=== PATIENT | female | born 1990 | race Two or more races ===

== ENCOUNTER 2023-11-15 06:48 | Emergency (ER) | payer OTHER, SELFPAY ==
[2023-11-15 06:54] VITALS: BP 135/96; PULSE 65; TEMP 36.6; O2SAT 98; BMI 32.3
--- NOTE | 2023-11-15 07:00 | PC.NURSE ---
pt reports back spasms to upper right side back. pt also reports leg cramps this week and h/o Addisons disease. No injury reported.
[2023-11-15 07:02] VITALS: O2SAT 98
--- NOTE | 2023-11-15 07:22 | ECG_ITS ---
[facility] Test Date: 2023-11-15 Pat Name: JEANIE CHOPRA Department: Room: - Gender: Female [employer]: : 1990 Requested By: Order Number: [id number] Reading MD: GEORGE LEON Measurements Intervals [place] Rate: 67 P: 54 DC: 156 QRS: 35 QRSD: 86 T: 71 QT: 394 QTc: 409 Interpretive Statements 1100 Sinus rhythm 1970 with occasional ectopic premature complexes 9140 abnormal rhythm ECG No previous ECG available for comparison Electronically Signed On 11-15-2023 20:07:20 EDT by GEORGE LEON
--- NOTE | 2023-11-15 07:33 | ED.GENADUL1 ---
HPI HPI - General Adult General Chief complaint: Back Pain/Injury Stated complaint: BACK PAIN Time Seen by Provider: 11/15/23 07:15 Source: patient Mode of arrival: walk-in History of Present Illness HPI narrative: The patient have a history of [place] disease coming to the ER with almost few days history of cramping mostly in the upper extremity and the back of her chest, patient mentioned that she have history of having low sodium that sometimes she need to take some increase her salt intake, she has not followed up with her primary care for the last 2 years The patient is complaining of posterior upper chest pain that comes whenever she take a deep breath and sometimes associated moving the right arm, the patient denies any fever chills cough or difficulty breathing She also denies any history of immobilization and mentioned that she also have sometimes cramping in her lower extremity but that is very common in addition sometimes cramping in her abdomen but the fact that she is Having cramping in her upper chest that is the new symptom that brought her today Related Data Home Medications ?Medication ?Instructions ?Recorded ?Confirmed desogestrel 0.15 mg-ethinyl 1 tab PO DAILY 11/15/23 11/15/23 estradiol 0.03 mg tablet (Apri) fludrocortisone 0.1 mg tablet 0.1 mg PO DAILY 11/15/23 11/15/23 hydrocortisone 10 mg tablet 20 mg PO DAILY 11/15/23 11/15/23 Previous Rx's ?Medication ?Instructions ?Recorded calcium carbonate 600 mg PO BID #20 tabs 11/15/23 Allergies Allergy/AdvReac Type Severity Reaction Status Date / Time No Known Drug Allergies Allergy Verified 11/15/23 06:58 Opioid HPI Opioid Management Most Recent Opioid Data: No Data to Display Review of Systems ROS Status of ROS 10 or more systems reviewed and unremarkable except as noted in history and below [facility] Medical History (Updated 11/15/23 @ 08:26 by Mirtha Galvan MD) Eduardo disease ?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 General: Well-appearing and in no apparent distress. Skin: Warm, dry, no pallor noted. No rash. Head: Normocephalic, atraumatic. Neck: Supple, non-tender. Eye: Pupils are equal, round and EOMI. No scleral icterus. Ears, Nose, Mouth, and Throat: TM are clear, no nasal mucosal hypertrophy. Oral mucosa is moist, no posterior oropharynx erythema, uvula is mid-line Cardiovascular: Regular Rate and Rhythm without murmur, gallop or rub. Respiratory: No accessory muscle use or respiratory distress. Lungs are clear to auscultation, no wheezing, rales or rhonchi Chest Wall: There is tenderness upon palpation of the posterior upper chest mostly toward the scapular and lower neck area mostly at the paraspinal area Back: No midline thoracic or lumbar vertebral tenderness. No CVA tenderness Musculoskeletal: normal ROM, no calf or popliteal tenderness, no lower extremity edema/swelling GI: Abdomen is soft, non-distended. Normal bowel sounds. No masses appreciated. No tenderness to palpation. No rebound, guarding, or rigidity noted. Neurological: A&O x4. No cranial nerve dysfunction observed. No truncal ataxia. Moves all extremities. Sensation intact. Psychiatric: Cooperative and interactive. Normal mood and affect. Constitutional Vital Signs, click to edit/add: Last Vital Signs Temp 97.9 F 11/15/23 06:54 Pulse 73 11/15/23 08:44 Resp 16 11/15/23 08:44 BP 123/89 11/15/23 08:44 Pulse Ox 98 11/15/23 08:44 O2 Del Method Room Air 11/15/23 07:02 Course Vital Signs Vital signs: Vital Signs Temperature 97.9 F 11/15/23 06:54 Pulse Rate 65 11/15/23 06:54 Respiratory Rate 16 11/15/23 06:54 Blood Pressure 135/96 H 11/15/23 06:54 Pulse Oximetry 98 11/15/23 06:54 Oxygen Delivery Method Room Air 11/15/23 06:54 Temperature 97.9 F 11/15/23 06:54 Pulse Rate 73 11/15/23 08:44 Respiratory Rate 16 11/15/23 08:44 Blood Pressure 123/89 11/15/23 08:44 Pulse Oximetry 98 11/15/23 08:44 Oxygen Delivery Method Room Air 11/15/23 07:02 Medical Decision Making MDM Narrative Medical decision making narrative: The patient EKG showing sinus rhythm with a heart rate of [address] elevation or depression but there is some sinus arrhythmia with one PAC but there is no prolonged QT The patient CBC and chemistry shows hypocalcemia with 8.3 calcium corrected with albumin which will be 8.4 The patient have mild symptoms of hypocalcemia right now with the EKG showing no QT prolongation mention to the patient does not have any acute spasm or any severe hypocalcemia symptoms Right now the patient was feeling better after she was treated with Toradol she was instructed about being started on calcium supplement mostly calcium carbonate 600 mg twice daily and she is to follow-up with her primary care doctor for another blood workup within 48 hours for calcium level The patient was instructed about the importance of coming back in case she could not get her blood workup on time to have it in the ER The patient is to follow up with primary care physician in next 2-3 days or to return to the emergency department should any of the signs or symptoms worsen or new symptoms develop. The patient agrees with the following Diagnosis and Treatment plan and the patient will be discharged home. Lab Data Labs: Lab Results 11/15/23 Range/Units 07:28 WBC 11.0 (4.0-11.0) 10^3/uL RBC 4.57 (4.20-5.40) 10^6/uL Hgb 15.2 (12.0-16.0) g/dL Hct 43.1 (36.0-48.0) % MCV 94.3 (81.0-99.0) fL MCH 33.3 (26.7-34.0) pg MCHC 35.3 H (29.9-35.2) g/dL RDW 12.0 (11.0-15.0) % Plt Count 206 (150-450) 10^3/uL MPV 10.5 (9.5-13.5) fL Neut % (Auto) 66.8 (43.0-75.0) % Lymph % (Auto) 24.5 (20.5-60.0) % [place] % (Auto) 7.4 (1.7-12.0) % Eos % (Auto) 0.5 L (0.9-7.0) % Baso % (Auto) 0.3 (0.2-2.0) % Neut # (Auto) 7.3 H (1.4-6.5) 10^3/uL Lymph # (Auto) 2.7 (1.2-3.8) 10^3/uL [place] # (Auto) 0.8 (0.3-0.8) 10^3/uL Eos # (Auto) 0.1 (0.0-0.7) 10^3/uL Baso # (Auto) 0.0 (0.0-0.1) 10^3/uL Abs Immat Gran (auto) 0.06 H (0.00-0.03) 10^3/uL Imm/Tot Granulo (auto) 0.5 (0.0-0.5) % PT 10.4 (9.0-11.6) sec INR 0.98 D-Dimer 0.23 (<=0.59) mg/L FEU Sodium 139 (136-145) mmol/L Potassium 3.5 (3.5-5.1) mmol/L Chloride 105 (98-107) mmol/L Carbon Dioxide 22.2 (21.0-32.0) mmol/L Anion Gap 15.3 BUN 12.0 (7.0-18.0) mg/dL Creatinine 0.83 (0.55-1.02) mg/dL Est GFR ( Amer) >60 (>=60) Est GFR (Non-Af Amer) >60 (>=60) BUN/Creatinine Ratio 14.5 Glucose 95 (74-106) mg/dL Calcium 8.3 L (8.5-10.1) mg/dL Magnesium 2.4 (1.8-2.4) mg/dL Total Bilirubin 0.5 (0.2-1.0) mg/dL AST 14 L (15-37) U/L ALT 24 (14-59) U/L Alkaline Phosphatase 59 (46-116) U/L Troponin I High Sens 11.1 (4.0-51.3) pg/mL Total Protein 6.5 (6.4-8.2) g/dL Albumin 3.3 L (3.4-5.0) g/dL Globulin 3.2 g/dL Albumin/Globulin Ratio 1.0 Serum HCG, Qual Negative (NEGATIVE) Discharge Plan Discharge Stand Alone Forms: Work/School Release, Portal Instructions Chief Complaint: Back Pain/Injury Clinical Impression: Hypocalcemia, Muscle pain Patient Disposition: Home, Self-Care Time of Disposition Decision: 08:26 Prescriptions / Home Meds: New calcium carbonate 600 mg calcium (1,500 mg) tablet 600 mg PO BID Qty: 20 0RF No Action desogestrel-ethinyl estradiol [Apri] 0.15-0.03 mg tablet 1 tab PO DAILY fludrocortisone 0.1 mg tablet 0.1 mg PO DAILY hydrocortisone 10 mg tablet 20 mg PO DAILY Rx Instructions: 20mg morning, 10mg in afternoon Print Language: Romansh Instructions: Hypocalcemia (ED) Additional Instructions: repreated calcium level in 48 hrs Referrals: Physician,Non-Staff, MD [Primary Care Provider] - 1 week Discharge Date/Time: 11/15/23 08:46
[2023-11-15] MEDS: KETOROLAC TROMETHAMINE 30 MG/ML VIAL 15 MG IVP (07:38)
[2023-11-15 07:40] LABS: Basophils Percent Auto 0.3 % (0.2-2.0); Eosinophils Absolute Auto 0.1 10^3/uL (0.0-0.7); Eosinophils Percent Auto 0.5 % (0.9-7.0); Hematocrit 43.1 % (36.0-48.0); Hemoglobin 15.2 g/dL (12.0-16.0); Immature Granulocytes Abs Auto 0.06 10^3/uL (0.00-0.03); Immature Granulocytes Pct Auto 0.5 % (0.0-0.5); Lymphocytes Absolute Auto 2.7 10^3/uL (1.2-3.8); Lymphocytes Percent Auto 24.5 % (20.5-60.0); Mean Corpuscular HGB Conc 35.3 g/dL (29.9-35.2); Mean Corpuscular Hemoglobin 33.3 pg (26.7-34.0); Mean Corpuscular Volume 94.3 fL (81.0-99.0); Mean Platelet Volume 10.5 fL (9.5-13.5); Monocytes Absolute Auto 0.8 10^3/uL (0.3-0.8); Monocytes Percent Auto 7.4 % (1.7-12.0); Neutrophils Absolute Auto 7.3 10^3/uL (1.4-6.5); Neutrophils Percent Auto 66.8 % (43.0-75.0); Platelet Count 206 10^3/uL (150-450); Red Blood Count 4.57 10^6/uL (4.20-5.40)
--- NOTE | 2023-11-15 07:42 | XR_ITS ---
The [address] [address] Patient Name: JEANIE CHOPRA MRN: [id number] date: 1990 Sex: F Assigned Patient Location: ER Current Patient Location: ER Accession/Order Number: [id number] Exam Date: 11/15/2023 07:38 Report Date: 11/15/2023 07:53 At the request of: YOSHI VARGAS Procedure: XR chest 1V EXAM: Chest x-ray HISTORY: . cp . COMPARISON: None. TECHNIQUE: Single view of the chest FINDINGS: Heart and vascularity are unremarkable. Lungs are free of focal infiltrates. Grossly no acute bony abnormality is appreciated. XR/XR chest 1V IMPRESSION: No acute heart or lung disease identified. Electronically authenticated by: SHAQUILLE BARTHOLOMEW Date: 11/15/2023 07:53
[2023-11-15 07:49] LABS: D Dimer 0.23 mg/L FEU (<=0.59)
[2023-11-15 07:51] LABS: HCG Qualitative NEGATIVE (NEGATIVE); Internal Control Within Normal Limits
[2023-11-15 07:54] LABS: Alanine Aminotransferase 24 U/L (14-59); Albumin Level 3.3 g/dL (3.4-5.0); Alkaline Phosphatase 59 U/L (46-116); Aspartate Amino Transferase 14 U/L (15-37); BUN Creatinine Ratio 14.5; Bilirubin Total 0.5 mg/dL (0.2-1.0); Calcium 8.3 mg/dL (8.5-10.1); Chloride 105 mmol/L (98-107); Estimated GFR (African America >60 (>=60); Estimated GFR (Non-African Ame >60 (>=60); Globulin 3.2 g/dL; Glucose 95 mg/dL (74-106); Potassium 3.5 mmol/L (3.5-5.1); Sodium 139 mmol/L (136-145); Total Protein 6.5 g/dL (6.4-8.2)
[2023-11-15 07:57] LABS: Magnesium 2.4 mg/dL (1.8-2.4); Troponin I High Sensitivity 11.1 pg/mL (4.0-51.3)
[2023-11-15 07:59] LABS: Anion Gap 15.3; Carbon Dioxide 22.2 mmol/L (21.0-32.0)
[2023-11-15 08:09] LABS: INR 0.98; Prothrombin Time 10.4 sec (9.0-11.6)
[2023-11-15 08:44] VITALS: BP 123/89; PULSE 73; O2SAT 98
== END 2023-11-15 08:46 | disposition home or self-care (01) ==
PROVIDERS: Emergency Provider Emergency Medicine
DX: E83.51 Hypocalcemia (principal); M79.10 Myalgia, unspecified site; E27.1 Primary adrenocortical insufficiency
CPT/HCPCS: 36415; 71045; 80053; 83735; 84484; 84703; 85025; 85378; 85610; 93005; 96374; 99285; J1885

== ENCOUNTER 2024-01-13 07:11 | Outpatient (OUT) | payer OTHER, SELFPAY ==
--- OUTSIDE RECORDS SUMMARY | 2024-01-13 07:19 | XMS_ITS | CCD ---
Author Organization [facility] Care Team Providers Care Privacy Manager Name Role Phone MARIE AGUILAR Referring Unavailable Unavailable Primary Care Provider Unavailjanice PLATT, NONE LISTED Primary Care UnavailREJI Jacobs Admitting Unavailable REJI VICENTE Attending Unavailable GARRETT REID Consulting Unavailable Héctor Chavez Consulting Unavailable JAXSON, MUHAMID M Referring Unavailable JAXSON, MUHAMID M Primary Care Unavailable KARRIE HOGAN Referring Unavailable JAXSON, MUHAMID M Primary Care Unavailable KARRIE HOGAN Attending Unavailable JAXSON, MUHAMID M Referring Unavailable JAXSON, MUHAMID M Primary Care Unavailable JOJO LONG Attending Unavailable JAXSON, MUHAMID M Referring Unavailable JAXSON, MUHAMID M Primary Care Unavailable Medications Current Medications Medication Drug Class(es) Dates Sig (Normalized) Sig (Original) hydrocortisone 10 mg oral tablet (1 source) Corticosteroid Start: 09-20-2019 take 2 tablets by mouth once daily in the morning hydrocortisone (CORTEF) 10 MG tablet TAKE 2 TABLETS BY MOUTH EVERY DAY IN THE MORNING 0 09/20/2019 Active Problems Problem Classification Problem Date Documented Date Episodic/Chronic E Codes: Fall (1 source) Fall from bed, initial encounter; Translations: [FALL FROM BED INITIAL ENCOUNTER] Onset: 09-23-2020 Episodic Headache; including migraine (1 source) Headache; including migraine; Translations: [HEADACHE UNSPECIFIED] Onset: 09-23-2020 Menopausal disorders (1 source) Other primary ovarian failure; 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 Other aftercare (1 source) Other alf (current) drug therapy; Translations: [OTH MANAGER WIRELESS CURRENT DRUG THERAPY] Onset: 09-23-2020 Episodic Other endocrine disorders (2 sources) Primary adrenocortical insufficiency; Translations: [Primary adrenocortical insufficiency] Onset: 07-07-2023 Chronic Other eye disorders (1 source) Dry eye syndrome of bilateral lacrimal glands; Translations: [Dry eye syndrome of bilateral lacrimal glands] Onset: 07-08-2023 Episodic Other injuries and conditions due to external causes (4 sources) Other specified injuries of head, initial encounter; Translations: [OTH SPEC INJURIES HEAD INITIAL ENC] Onset: 09-19-2020 Episodic Unclassified (1 source) Annual Exam Onset: 09-02-2023 Results Test Name Value Interpretation Reference Range Facility BASIC METABOLIC PANLon 07-06 Anion gap [Moles/Vol] 9 mmol/L Normal 5-15 [facility] Comment on above: Performed By: #### Meliton ARIAS, 3016-3, 302-7 #### [facility] ([id number]) [address], [address] [place] [address] Calcium [Mass/Vol] 8.8 mg/dL Normal 8.5-10.5 [facility] Comment on above: Performed By: #### Meliton ARIAS, 3016-3, 302-7 #### [facility] ([id number]) [address], [address] [place] [address] Chloride [Moles/Vol] 105 mmol/L Normal 98-[address] [facility] Comment on above: Performed By: #### Meliton ARIAS, 3016-3, 302-7 #### [facility] ([id number]) [address], [address] [place] [address] CO2 [Moles/Vol] 26 mmol/L Normal 22-32 [facility] Comment on above: Performed By: #### Meliton ARIAS, 3016-3, 302-7 #### [facility] ([id number]) [address], [address] [place] [address] Creatinine [Mass/Vol] 0.91 mg/dL Normal 0.40-1.00 [facility] Comment on above: Result Comment: METH OD TRACEABLE TO IDMS STANDARD Performed By: #### Meliton ARIAS, 3016-3, 302-7 #### [facility] ([id number]) [address] [address] [place] [address] GFR/1.73 sq M.predicted among non-blacks MDRD (S/P/Bld) [Vol rate/Area] 87 mL/min/{1.73_m2} Normal >59 [facility] Comment on above: Result Comment: Reported eGFR is based on the CKD-EPI 2020 equation that does not use a race coefficient. Performed By: #### Meliton ARIAS, 3016-3, 3023-7 #### [facility] ([id number]) [address] [address] [place] [address] Glucose [Mass/Vol] 74 mg/dL Normal 65-99 [facility] Comment on above: Performed By: #### Meliton ARIAS, 6-3, 3023-7 #### [facility] ([id number]) [address] [address] [place] [address] Potassium [Moles/Vol] 3.6 mmol/L Normal 3.5-5.0 [facility] Comment on above: Performed By: #### Meliton ARIAS, 6-3, 3023-7 #### [facility] ([id number]) [address] [address] [place] [address] Sodium [Moles/Vol] 140 mmol/L Normal 134-146 [facility] Comment on above: Performed By: #### Meliton ARIAS, 6-3, 3023-7 #### [facility] ([id number]) [address] [address] [place] [address] Urea nitrogen [Mass/Vol] 10 mg/dL Normal 5-23 [facility] Comment on above: Performed By: #### Meliton ARIAS, 6-3, 3023-7 #### [facility] ([id number]) [address] [address] [place] [address] FREE T4on 07-07-2023 Free T4 [Mass/Vol] 0.81 ng/dL Normal 0.61-1.60 [facility] Comment on above: Performed By: #### Meliton ARIAS, 3016-3, 3024-7 #### [facility] ([id number]) [address] [address] [place] [address] HGB A1C (GLYCO-HGB)on 2023 Glucose [Mass/Vol] 100 mg/dL Normal [facility] Comment on above: Performed By: #### Meliton ARIAS, 3016-3, 3023-7 #### [facility] ([id number]) [address] [address] [place] [address] HbA1c (Bld) [Mass fraction] 5.1 % Normal 4.4-5.6 [facility] Comment on above: Result Comment: NOTE ADA Guidelines Result HgbA1c Normal : less than 5.7 % Prediabetes : 5.7 % to 6.4 % Diabetes : > 6.4 % Use with caution in patients with abnormal hemoglobin variants as the half-life of red blood cells and in vivo glycation rates are affected. Performed By: #### Meliton ARIAS, 3016-3, 302-7 #### [facility] ([id number]) [address] [address] [place] [address] TSH Qnon 07-07-2023 TSH 3.54 uIU/mL Normal 0.49-4.67 [facility] Comment on above: Performed By: #### Meliton ARIAS, 3016-3, 3024-7 #### [facility] ([id number]) [address] [address] [place] [address] BASIC METABOLIC PANLon 04-15 Anion gap [Moles/Vol] 10 mmol/L Normal 5-15 [facility] Comment on above: Performed By: #### Meliton ARIAS #### [facility] ([id number]) [address] [address] [place] [address] Calcium [Mass/Vol] 8.8 mg/dL Normal 8.5-10.5 [facility] Comment on above: Performed By: #### B MP #### [facility] ([id number]) [address] [place] [address] Chloride [Moles/Vol] 103 mmol/L Normal 98-[address] [facility] Comment on above: Performed By: #### B MP #### [facility] ([id number]) [address] [address] [place] [address] CO2 [Moles/Vol] 26 mmol/L Normal 22-32 [facility] Comment on above: Performed By: #### B MP #### [facility] ([id number]) [address] [address] [place] [address] Creatinine [Mass/Vol] 0.84 mg/dL Normal 0.40-1.00 [facility] Comment on above: Result Comment: METH OD TRACEABLE TO IDMS STANDARD Performed By: #### B MP #### [facility] ([id number]) [address] [address] [place] [address] eGFR (CKD-EPI) NON-RACE DEPENDENT >90 Normal >59 [facility] Comment on above: Result Comment: Reported eGFR is based on the CKD-EPI 2020 equation that does not use a race coefficient. Performed By: #### B MP #### [facility] ([id number]) [address] [address] [place] [address] Glucose [Mass/Vol] 90 mg/dL Normal 65-99 [facility] Comment on above: Performed By: #### B MP #### [facility] ([id number]) [address] [address] [place] [address] Potassium [Moles/Vol] 3.2 mmol/L Low 3.5-5.0 [facility] Comment on above: Performed By: #### B MP #### [facility] ([id number]) [address] [place] [address] Sodium [Moles/Vol] 139 mmol/L Normal 134-146 [facility] Comment on above: Performed By: #### B MP #### [facility] ([id number]) [address] [place] [address] Urea nitrogen [Mass/Vol] 6 mg/dL Normal 5-23 [facility] Comment on above: Performed By: #### B MP #### [facility] ([id number]) [address] [place] [address] Comprehensive Metabolic Pane muna 04-21-2021 Albumin [Mass/Vol] 3.1 g/dL Low 3.2-5.5 [facility] Comment on above: Performed By: #### C MP #### [facility] [address] Albumin/Globulin [Mass ratio] 1.1 {ratio} Normal [facility] Comment on above: Performed By: #### C MP #### [address] ALP [Catalytic activity/Vol] 145 U/L High 32-92 [facility] Comment on above: Result Comment: PERF ORMED BY: [place] [address] PATHOLOGIST CHANGE CONSULTANT STEWART RAMOS M.D. Performed By: #### C MP #### [facility] [address] [place] [id number] [place] ALT [Catalytic activity/Vol] 14 U/L Normal 10-60 [facility] Comment on above: Performed By: #### C MP #### [facility] [address] [place] [id number] [place] AST [Catalytic activity/Vol] 20 U/L Normal 10-42 [facility] Comment on above: Performed By: #### C MP #### [facility] [address] [place] [address] Bilirubin [Mass/Vol] 0.4 mg/dL Normal 0.3-1.2 [facility] Comment on above: Performed By: #### C MP #### [address] Calcium [Mass/Vol] 9.4 mg/dL Normal 8.2-10.2 [facility] Comment on above: Performed By: #### C MP #### [address] Chloride [Moles/Vol] 104 mmol/L Normal 95-114 [facility] Comment on above: Performed By: #### C MP #### [address] CO2 [Moles/Vol] 18.5 mmol/L Low 22.0-30.0 [facility] Comment on above: Performed By: #### C MP #### [address] Creatinine [Mass/Vol] 0.56 mg/dL Normal 0.44-1.03 [facility] Comment on above: Performed By: #### C MP #### [address] Estimated GFR ( Sola > 60 Normal [facility] Comment on above: Result Comment: GFR estimated reference range: According to KDOQI guidelines, <60 ml/min/1.73m2 is sufficient to diagnose a patient with chronic kidney disease. Performed By: #### C MP #### [address] Estimated GFR (Non- Am > 60 Normal [facility] Comment on above: Performed By: #### C MP #### [address] Globulin (S) [Mass/Vol] 2.8 g/dL Normal [facility] Comment on above: Performed By: #### C MP #### [address] Glucose [Mass/Vol] 100 mg/dL Normal 70-100 [facility] Comment on above: Result Comment: [place] Glucose Reference Range is dependent on time and content of last meal. Glucose of more than 200 mg/dL in a nonstressed, ambulatory subject supports the diagnosis of Diabetes Mellitus. ADA recommended reference range Performed By: #### C MP #### [facility] [address] Potassium [Moles/Vol] 3.6 mmol/L Normal 3.5-5.1 [facility] Comment on above: Performed By: #### C MP #### [facility] [address] Protein [Mass/Vol] 5.9 g/dL Low 6.1-7.9 [facility] Comment on above: Performed By: #### C MP #### [facility] [address] [place] [address] Sodium [Moles/Vol] 134 mmol/L Low 136-146 [facility] Comment on above: Performed By: #### C MP #### [facility] [address] [place] [address] [place] Urea nitrogen [Mass/Vol] 5 mg/dL Low 9-23 [facility] Comment on above: Performed By: #### C MP #### [facility] [address] Comprehensive Metabolic Pane muna 02-18-2021 Albumin [Mass/Vol] 3.7 g/dL Normal 3.2-5.5 [facility] Comment on above: Performed By: #### B MP, CBC, HCGQNT #### [facility] [address] [place] [phone] [place] Albumin/Globulin [Mass ratio] 1.3 {ratio} Normal [facility] Comment on above: Performed By: #### B MP, CBC, HCGQNT #### [facility] [address] [place] [phone] [place] ALP [Catalytic activity/Vol] 61 U/L Normal 32-92 [facility] Comment on above: Result Comment: PERF ORMED BY: [place] [address] PATHOLOGIST CHANGE CONSULTANT STEWART RAMOS M.D. Performed By: #### B MP, CBC, HCGQNT #### [address] ALT [Catalytic activity/Vol] 56 U/L Normal 10-60 [facility] Comment on above: Performed By: #### B MP, CBC, HCGQNT #### [address] AST [Catalytic activity/Vol] 41 U/L Normal 10-42 [facility] Comment on above: Performed By: #### B MP, CBC, HCGQNT #### [address] Bilirubin [Mass/Vol] 0.7 mg/dL Normal 0.3-1.2 [facility] Comment on above: Performed By: #### B MP, CBC, HCGQNT #### [address] Calcium [Mass/Vol] 9.8 mg/dL Normal 8.2-10.2 [facility] Comment on above: Performed By: #### B MP, CBC, HCGQNT #### [address] Chloride [Moles/Vol] 100 mmol/L Normal 95-114 [facility] Comment on above: Performed By: #### B MP, CBC, HCGQNT #### [facility] [address] [place] [address] CO2 [Moles/Vol] 19.1 mmol/L Low 22.0-30.0 [facility] Comment on above: Performed By: #### B MP, CBC, HCGQNT #### [address] Creatinine [Mass/Vol] 0.50 mg/dL Normal 0.44-1.03 [facility] Comment on above: Performed By: #### B MP, CBC, HCGQNT #### [address] [place] [address] [place] Estimated GFR ( Sola > 60 Normal [facility] Comment on above: Result Comment: GFR estimated reference range: According to KDOQI guidelines, <60 ml/min/1.73m2 is sufficient to diagnose a patient with chronic kidney disease. Performed By: #### B MP, CBC, HCGQNT #### [address] Estimated GFR (Non- Am > 60 Normal [facility] Comment on above: Performed By: #### B MP, CBC, HCGQNT #### [address] Globulin (S) [Mass/Vol] 2.9 g/dL Normal [facility] Comment on above: Performed By: #### B MP, CBC, HCGQNT #### [address] Glucose [Mass/Vol] 75 mg/dL Normal 70-100 [facility] Comment on above: Result Comment: [place] Glucose Reference Range is dependent on time and content of last meal. Glucose of more than 200 mg/dL in a nonstressed, ambulatory subject supports the diagnosis of Diabetes Mellitus. ADA recommended reference range Performed By: #### B MP, CBC, HCGQNT #### [address] Potassium [Moles/Vol] 4.2 mmol/L Normal 3.5-5.1 [facility] Comment on above: Performed By: #### B MP, CBC, HCGQNT #### [address] Protein [Mass/Vol] 6.6 g/dL Normal 6.1-7.9 [facility] Comment on above: Performed By: #### B MP, CBC, HCGQNT #### [address] Sodium [Moles/Vol] 133 mmol/L Low 136-146 [facility] Comment on above: Performed By: #### B MP, CBC, HCGQNT #### [facility] [address] [place] [phone] [facility] Urea nitrogen [Mass/Vol] 4 mg/dL Low - [facility] Comment on above: Performed By: #### B MP, CBC, HCGQNT #### [facility] [address] [place] [phone] [facility] US OB limitedon 02-10-2021 US OB limited [facility] Main [place] [address] [place] [address] Ultrasound Report Signed Patient: Franny Miller MR#: [id number] : 1990 Acct:[id number] Age/Sex: 30 / F ADM Date: 02/10/21 Loc: Room: Type: [facility] Attending Dr: Jennie Vides DO Ordering Provider: Jennie Vides DO Date of Service: 02/10/21 US/US OB limited: Viability;17 weeks gestation of Copies to: Jennie Vides DO LIMITED OB ULTRASOUND CLINICAL DATA: 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 The placenta is anterior and unremarkable in appearance. The estimated cervical length with the transvaginal probe is 4 cm. The amniotic fluid volume is subjectively normal. There is cardiac and somatic activity with heart rate of 156 bpm. The following measurements were obtained: Biparietal diameter 3.9 cm 17 weeks 6 days +/- 1 weeks 2 days 46% Head circumference 14.0 cm 17 weeks 3 days +/- 1 week 2 days 18% Abdominal circumference 11.7 cm 17 weeks 4 days +/- 1 week 5 days 34% Femur length 2.6 cm 18 weeks 0 days +/- 1 week 6 days 46% The composite ultrasound age based on these measurements is 17 weeks 5 days. The estimated date of delivery is July 16, 2021. US/US OB limited IMPRESSION: SINGLE LIVE INTRAUTERINE GESTATION WITH ULTRASOUND AGE OF 17 WEEKS 5 DAYS Impression dictated by: Karrie Vásquez M.D.02/10/2021 7:54 PM Dictation Location: [place] [address] Tech: Autumn Olvera Transcribed By: GERALDINE 02/10/211953 Dictated By: Karrie Vásquez MD 02/10/211948 Signed By: 02/10/211953 Normal [facility] A1C with Estimated Average Mia meredith 01-22-2021 Glucose [Mass/Vol] 103 mg/dL Normal [facility] Comment on above: Order Comment: PT FA STED 11 1/2 HRS Result Comment: PERF ORMED BY: [place] [address] PATHOLOGIST CHANGE CONSULTANT STEWART RAMOS M.D. Performed By: #### B MP, CBC, HCGQNT #### [facility] [address] [place] [address] HbA1c (Bld) [Mass fraction] 5.2 % Normal 4.3-5.6 [facility] Comment on above: Order Comment: PT FA STED 11 1/2 HRS Result Comment: Incr eased risk for diabetes: 5.7 - 6.4 diabetes: >6.4 glycemic control for adults with diabetes: <7.0 Performed By: #### B MP, CBC, HCGQNT #### [facility] [address] [place] [phone] [place] Adrenocorticotropic Hormone PLon 01-22-[address] 338.0 pg/mL High 7.2-63.3 [facility] Comment on above: Order Comment: PT FA STED 11 1/2 HRS List any foods/meds the pt has taken (see Test/Proc Notes):: FASTED 11 1/2 HRS Patient Posture before Draw (see Test/Proc Notes):: SUPINE Result Comment: ACTH reference interval for samples collected between 7 and 10 AM. Performed at: - [facility] [id number] Engineering Mathematician: Ector Ruano PhD, Phone: [phone] Performed By: #### B MP, CBC, HCGQNT #### [facility] [address] [place] [phone] [place] Aldosteroneon 01-22-2021 Aldosterone <1.0 Normal 0.0-30.0 [facility] Comment on above: Order Comment: PT FA STED 11 1/2 HRS List any foods/meds the pt has taken (see Test/Proc Notes):: FASTED 11 1/2 HRS Patient Posture before Draw (see Test/Proc Notes):: SUPINE Result Comment: This test was developed and its performance characteristics determined by [facility]. It has not been cleared or approved by the Food and Drug Administration. Performed at: [address] [id number] Engineering Mathematician: Roseline Giles MD, Phone: [phone] PERFORMED BY: [place] [address] PATHOLOGIST CHANGE CONSULTANT STEWART RAMOS M.D. Performed By: #### B MP, CBC, HCGQNT #### [facility] [address] [place] [address] Comprehensive Metabolic Pane muna 01-22-2021 Albumin [Mass/Vol] 3.7 g/dL Normal 3.2-5.5 [facility] Comment on above: Order Comment: PT FA STED 11 1/2 HRS Performed By: #### B MP, CBC, HCGQNT #### [facility] [address] [place] [address] Albumin/Globulin [Mass ratio] 1.2 {ratio} Normal [facility] Comment on above: Order Comment: PT FA STED 11 1/2 HRS Performed By: #### B MP, CBC, HCGQNT #### [facility] [address] [place] [address] [place] ALP [Catalytic activity/Vol] 47 U/L Normal 32-92 [facility] Comment on above: Order Comment: PT FA STED 11 1/2 HRS Performed By: #### B MP, CBC, HCGQNT #### [facility] [address] [place], [place] [id number] [place] ALT [Catalytic activity/Vol] 25 U/L Normal 10-60 [facility] Comment on above: Order Comment: PT FA STED 11 1/2 HRS Performed By: #### B MP, CBC, HCGQNT #### [facility] [address] [place], [place] [id number] [place] AST [Catalytic activity/Vol] 25 U/L Normal 10-42 [facility] Comment on above: Order Comment: PT FA STED 11 1/2 HRS Performed By: #### B MP, CBC, HCGQNT #### [facility] [address] Bilirubin [Mass/Vol] 0.6 mg/dL Normal 0.3-1.2 [facility] Comment on above: Order Comment: PT FA STED 11 1/2 HRS Performed By: #### B MP, CBC, HCGQNT #### [facility] [address] Calcium [Mass/Vol] 9.4 mg/dL Normal 8.2-10.2 [facility] Comment on above: Order Comment: PT FA STED 11 1/2 HRS Performed By: #### B MP, CBC, HCGQNT #### [facility] [address] Chloride [Moles/Vol] 102 mmol/L Normal 95-114 [facility] Comment on above: Order Comment: PT FA STED 11 1/2 HRS Performed By: #### B MP, CBC, HCGQNT #### [facility] [address] CO2 [Moles/Vol] 20.5 mmol/L Low 22.0-30.0 [facility] Comment on above: Order Comment: PT FA STED 11 1/2 HRS Performed By: #### B MP, CBC, HCGQNT #### [facility] [address] Creatinine [Mass/Vol] 0.69 mg/dL Normal 0.44-1.03 [facility] Comment on above: Order Comment: PT FA STED 11 1/2 HRS Performed By: #### B MP, CBC, HCGQNT #### [facility] [address] [place] [address] [place] Estimated GFR ( Soal > 60 Normal [facility] Comment on above: Order Comment: PT FA STED 11 1/2 HRS Result Comment: GFR estimated reference range: According to KDOQI guidelines, <60 ml/min/1.73m2 is sufficient to diagnose a patient with chronic kidney disease. Performed By: #### B MP, CBC, HCGQNT #### [facility] [address] Estimated GFR (Non- Am > 60 Normal [facility] Comment on above: Order Comment: PT FA STED 11 1/2 HRS Performed By: #### B MP, CBC, HCGQNT #### [facility] [address] Globulin (S) [Mass/Vol] 3.1 g/dL Normal [facility] Comment on above: Order Comment: PT FA STED 11 1/2 HRS Performed By: #### B MP, CBC, HCGQNT #### [facility] [address] Glucose [Mass/Vol] 92 mg/dL Normal 70-100 [facility] Comment on above: Order Comment: PT FA STED 11 1/2 HRS Result Comment: [place] Glucose Reference Range is dependent on time and content of last meal. Glucose of more than 200 mg/dL in a nonstressed, ambulatory subject supports the diagnosis of Diabetes Mellitus. ADA recommended reference range Performed By: #### B MP, CBC, HCGQNT #### [facility] [address] Potassium [Moles/Vol] 3.9 mmol/L Normal 3.5-5.1 [facility] Comment on above: Order Comment: PT FA STED 11 1/2 HRS Performed By: #### B MP, CBC, HCGQNT #### [facility] [address] Protein [Mass/Vol] 6.8 g/dL Normal 6.1-7.9 [facility] Comment on above: Order Comment: PT FA STED 11 1/2 HRS Performed By: #### B MP, CBC, HCGQNT #### [facility] [address] Sodium [Moles/Vol] 132 mmol/L Low 136-146 [facility] Comment on above: Order Comment: PT FA STED 11 1/2 HRS Performed By: #### B MP, CBC, HCGQNT #### [address] Urea nitrogen [Mass/Vol] 5 mg/dL Low 9-23 [facility] Comment on above: Order Comment: PT FA STED 11 1/2 HRS Performed By: #### B MP, CBC, HCGQNT #### [address] Cortisolon 01-22-2021 Cortisol 36.8 ug/dL Normal [facility] Comment on above: Order Comment: PT FA STED 11 1/2 HRS Result Comment: Refe rence range: AM 6 - 24 ug/dl PM <10 ug/dl PERFORMED BY: [place] [address] PATHOLOGIST CHANGE CONSULTANT STEWART RAMOS M.D. Performed By: #### B MP, CBC, HCGQNT #### [address] Renin Activityon 01-22-2021 Renin Activity 41.588 High 0.167-5.380 [facility] Comment on above: Order Comment: PT FA STED 11 1/2 HRS List any foods/meds the pt has taken (see Test/Proc Notes):: FASTED 11 1/2 HRS Patient Posture before Draw (see Test/Proc Notes):: SUPINE Result Comment: This test was developed and its performance characteristics determined by [facility]. It has not been cleared or approved by the Food and Drug Administration. Performed at: - [address] [id number] Engineering Mathematician: Roseline Giles MD, Phone: [phone] Performed By: #### B MP, CBC, HCGQNT #### [address] THYROID SCREENon 01-22-2021 Free T4 [Mass/Vol] 0.75 ng/dL Normal 0.61-1.12 [facility] Comment on above: Order Comment: PT FA STED 11 1/2 HRS Performed By: #### B MP, CBC, HCGQNT #### [facility] [address] [place] [address] TSH Qn 2.60 m[IU]/L Normal 0.45-5.33 [facility] Comment on above: Order Comment: PT FA STED 11 1/2 HRS Performed By: #### B MP, CBC, HCGQNT #### [address] Amylaseon 01-14-2021 Amylase [Catalytic activity/Vol] 21 U/L Low 28-100 [facility] Comment on above: Performed By: #### L IPASE, BMP, STEFANIE, [id number] #### [address] Performed By: #### B MP, CBC, HCGQNT #### [address] Basic Metabolic Panelon 12-21 Calcium [Mass/Vol] 9.7 mg/dL Normal 8.2-10.2 [facility] Comment on above: Performed By: #### L IPASE, BMP, STEFANIE, [id number] #### [address] Performed By: #### B MP, LIPASE, [id number], STEFANIE #### [address] Chloride [Moles/Vol] 103 mmol/L Normal 95-114 [facility] Comment on above: Performed By: #### L IPASE, BMP, STEFANIE, [id number] #### [address] Performed By: #### B MP, LIPASE, [id number], STEFANIE #### [address] CO2 [Moles/Vol] 19.0 mmol/L Low 22.0-30.0 [facility] Comment on above: Performed By: #### L IPASE, BMP, STEFANIE, [id number] #### [address] Performed By: #### B MP, LIPASE, [id number], STEFANIE #### [address] Creatinine [Mass/Vol] 0.62 mg/dL Normal 0.44-1.03 [facility] Comment on above: Performed By: #### L IPASE, BMP, STEFANIE, [id number] #### [address] Performed By: #### B MP, LIPASE, [id number], STEFANIE #### [address] Estimated GFR ( Sola > 60 [facility] Comment on above: Result Comment: GFR estimated reference range: According to KDOQI guidelines, <60 ml/min/1.73m2 is sufficient to diagnose a patient with chronic kidney disease. Performed By: #### L IPASE, BMP, STEFANIE, [id number] #### [address] Performed By: #### B MP, LIPASE, [id number], STEFANIE #### [address] Estimated GFR (Non- Am > 60 [facility] Comment on above: Performed By: #### L IPASE, BMP, STEFANIE, [id number] #### [address] Performed By: #### B MP, LIPASE, [id number], STEFANIE #### [address] Glucose [Mass/Vol] 90 mg/dL Normal 70-100 [facility] Comment on above: Result Comment: [place] om Glucose Reference Range is dependent on time and content of last meal. Glucose of more than 200 mg/dL in a nonstressed, ambulatory subject supports the diagnosis of Diabetes Mellitus. ADA recommended reference range Performed By: #### L IPASE, BMP, STEFANIE, [id number] #### [address] Performed By: #### B MP, LIPASE, [id number], STEFANIE #### [address] Potassium [Moles/Vol] 3.9 mmol/L Normal 3.5-5.1 [facility] Comment on above: Performed By: #### L IPASE, BMP, STEFANIE, [id number] #### [address] Performed By: #### B MP, LIPASE, [id number], STEFANIE #### [address] Sodium [Moles/Vol] 132 mmol/L Low 136-146 [facility] Comment on above: Performed By: #### L IPASE, BMP, STEFANIE, [id number] #### [address] Performed By: #### B MP, LIPASE, [id number], STEFANIE #### [address] Urea nitrogen [Mass/Vol] 4 mg/dL Low 9-23 [facility] Comment on above: Performed By: #### L IPASE, BMP, STEFANIE, [id number] #### [address] Performed By: #### B MP, LIPASE, [id number], STEFANIE #### [address] Lipaseon 01-14-2021 Lipase [Catalytic activity/Vol] 27.0 U/L Normal 22-51 [facility] Comment on above: Performed By: #### L IPASE, BMP, STEFANIE, [id number] #### [facility] [address] [place] [address] Performed By: #### B MP, CBC, HCGQNT #### [address] Vitamin D 25 Hydroxy Totalon 01-14-2021 Vitamin D 25 Hydroxy Total 39.2 ng/mL Normal 30-100 [facility] Comment on above: Result Comment: MERRICK MIN D STATUS 25(OH)VITAMIN D RANGE (ng/mL) Deficient <20 Insufficient 20 to <30 Sufficient 30 to 100 Reference: Robin MF,Le NC, Rhiannon YUSUF, et al. Evaluation,treatment, and prevention of vitamin D deficiency; an Endocrine Society clinical practice guideline. JCEM. 2010; 96(7):1911-30. PERFORMED BY: [place] [address] PATHOLOGIST CHANGE CONSULTANT STEWART RAMOS M.D. Performed By: #### L IPASE, BMP, STEFANIE, [id number] #### [address] Performed By: #### B MP, CBC, HCGQNT #### [address] ABO/RH Typeon 11-30-2020 ABO and Rh group Nom (Bld) Blood group O Rh(D) positive Normal [facility] Comment on above: Result Comment: PERF ORMED BY: [place] [address] PATHOLOGIST CHANGE CONSULTANT STEWART RAMOS M.D. ABO/Rh Retypeon 11-30-2020 ABO/RH Recheck Result Positive Normal [facility] Comment on above: Result Comment: PERF ORMED BY: [place] [address] PATHOLOGIST CHANGE CONSULTANT STEWART RAMOS M.D. Basic Metabolic Panelon 11-20 Calcium [Mass/Vol] 9.2 mg/dL Normal 8.2-10.2 [facility] Comment on above: Performed By: #### B MP, CBC, HCGQNT #### [facility] [address] [place] [address] Chloride [Moles/Vol] 102 mmol/L Normal 95-114 [facility] Comment on above: Performed By: #### B MP, CBC, HCGQNT #### [place] [address] [place] CO2 [Moles/Vol] 21.3 mmol/L Low 22.0-30.0 [facility] Comment on above: Performed By: #### B MP, CBC, HCGQNT #### [facility] [address] Creatinine [Mass/Vol] 0.83 mg/dL Normal 0.44-1.03 [facility] Comment on above: Performed By: #### B MP, CBC, HCGQNT #### [facility] [address] [place] [address] [place] Creatinine Clr Calc Pharmacy 85.40 [facility] Comment on above: Performed By: #### B MP, CBC, HCGQNT #### [address] Estimated GFR ( Sola > 60 [facility] Comment on above: Result Comment: GFR estimated reference range: According to KDOQI guidelines, <60 ml/min/1.73m2 is sufficient to diagnose a patient with chronic kidney disease. Performed By: #### B MP, CBC, HCGQNT #### [address] Estimated GFR (Non- Am > 60 [facility] Comment on above: Performed By: #### B MP, CBC, HCGQNT #### [address] Glucose [Mass/Vol] 98 mg/dL Normal 70-100 [facility] Comment on above: Result Comment: [place] om Glucose Reference Range is dependent on time and content of last meal. Glucose of more than 200 mg/dL in a nonstressed, ambulatory subject supports the diagnosis of Diabetes Mellitus. ADA recommended reference range Performed By: #### B MP, CBC, HCGQNT #### [facility] [address] Potassium [Moles/Vol] 4.1 mmol/L Normal 3.5-5.1 [facility] Comment on above: Performed By: #### B MP, CBC, HCGQNT #### [place] [address] [place] Sodium [Moles/Vol] 134 mmol/L Low 136-146 [facility] Comment on above: Performed By: #### B MP, CBC, HCGQNT #### [address] Urea nitrogen [Mass/Vol] 11 mg/dL Normal 9-23 [facility] Comment on above: Performed By: #### B MP, CBC, HCGQNT #### [address] Complete Blood Count Auto Di ffon 11-30-2020 Basophils (Bld) [#/Vol] 0.1 10*3/uL Normal 0.0-0.2 [facility] Comment on above: Result Comment: PERF ORMED BY: [place] [address] PATHOLOGIST CHANGE CONSULTANT STEWART RAMOS M.D. Performed By: #### B MP, CBC, HCGQNT #### [address] Basophils/100 WBC (Bld) 0.8 % Normal . [facility] Comment on above: Performed By: #### B MP, CBC, HCGQNT #### [address] Eosinophils (Bld) [#/Vol] 0.1 10*3/uL Normal 0.0-0.45 [facility] Comment on above: Performed By: #### B MP, CBC, HCGQNT #### [address] Eosinophils/100 WBC (Bld) 1.4 % Normal . [facility] Comment on above: Performed By: #### B MP, CBC, HCGQNT #### [facility] [address] [place] [address] Erythrocyte distribution width (RBC) [Ratio] 12.4 % Normal 11.9-15.3 [facility] Comment on above: Performed By: #### B MP, CBC, HCGQNT #### [address] Hematocrit (Bld) [Volume fraction] 45.9 % Normal 34.0-46.4 [facility] Comment on above: Performed By: #### B MP, CBC, HCGQNT #### [address] Hemoglobin (Bld) [Mass/Vol] 16.3 g/dL High 11.8-15.4 [facility] Comment on above: Performed By: #### B MP, CBC, HCGQNT #### [address] Lymphocytes (Bld) [#/Vol] 2.7 10*3/uL Normal 1.00-4.8 [facility] Comment on above: Performed By: #### B MP, CBC, HCGQNT #### [address] Lymphocytes/100 WBC (Bld) 32.0 % Normal . [facility] Comment on above: Performed By: #### B MP, CBC, HCGQNT #### [address] MCH (RBC) [Entitic mass] 32.9 pg Normal 24.7-34.3 [facility] Comment on above: Performed By: #### B MP, CBC, HCGQNT #### [address] MCV (RBC) [Entitic vol] 92.8 fL Normal 80-100 [facility] Comment on above: Performed By: #### B MP, CBC, HCGQNT #### [address] Mean Corpuscular HGB Conc 35.5 g/dL High 32.0-35.0 [facility] Comment on above: Performed By: #### B MP, CBC, HCGQNT #### [address] Monocytes (Bld) [#/Vol] 0.8 10*3/uL Normal 0.0-0.8 [facility] Comment on above: Performed By: #### B MP, CBC, HCGQNT #### [facility] [address] [place] [address] [place] Monocytes/100 WBC (Bld) 9.5 % Normal . [facility] Comment on above: Performed By: #### B MP, CBC, HCGQNT #### [facility] [address] Neutrophils (Bld) [#/Vol] 4.8 10*3/uL Normal 1.8-7.7 [facility] Comment on above: Performed By: #### B MP, CBC, HCGQNT #### [address] Neutrophils/100 WBC (Bld) 56.3 % Normal . [facility] Comment on above: Performed By: #### B MP, CBC, HCGQNT #### [place] [address] [place] Nucleated RBC/100 WBC (Bld) [Ratio] 0.1 % Normal 0-0.5 [facility] Comment on above: Performed By: #### B MP, CBC, HCGQNT #### [address] Platelet mean volume (Bld) [Entitic vol] 9.3 fL Normal 6.3-10.7 [facility] Comment on above: Performed By: #### B MP, CBC, HCGQNT #### [place] [address] [place] Platelets (Bld) [#/Vol] 233 10*3/uL Normal 150-450 [facility] Comment on above: Performed By: #### B MP, CBC, HCGQNT #### [place] [address] [place] RBC (Bld) [#/Vol] 4.95 10*6/uL Normal 3.60-5.00 [facility] Comment on above: Performed By: #### B MP, CBC, HCGQNT #### [place] [address] [place] WBC (Bld) [#/Vol] 8.5 10*3/uL Normal 4.5-11.0 [facility] Comment on above: Performed By: #### B MP, CBC, HCGQNT #### [facility] [address] [place] [address] [place] Dipstick and Microscopicon 0 11-30-2020 Appearance (U) Clear Normal Clear [facility] Comment on above: Order Comment: Name Collection Type:: Clean-Voided Midstream Performed By: #### A DDONUAPLUS, UHCG #### [place] [address] [place] Bacteria,Urine Rare High None Seen [facility] Comment on above: Order Comment: Name Collection Type:: Clean-Voided Midstream Performed By: #### A DDONUAPLUS, UHCG #### [place] [address] [place] Bilirubin,Urine Negative Normal Negative [facility] Comment on above: Order Comment: Name Collection Type:: Clean-Voided Midstream Performed By: #### A DDONUAPLUS, UHCG #### [place] [address] [place] Color (U) Yellow Normal Yellow [facility] Comment on above: Order Comment: Name Collection Type:: Clean-Voided Midstream Performed By: #### A DDONUAPLUS, UHCG #### [facility] [address] [place] [address] [place] Glucose Ql (U) Normal Normal Normal [facility] Comment on above: Order Comment: Name Collection Type:: Clean-Voided Midstream Performed By: #### A DDONUAPLUS, UHCG #### [facility] [address] [place] [address] [place] Hyaline Casts,Urine 0-8 Normal 0-8 [facility] Comment on above: Order Comment: Name Collection Type:: Clean-Voided Midstream Performed By: #### A DDONUAPLUS, UHCG #### [place] [address] [place] Ketones Ql (U) Negative Normal Negative [facility] Comment on above: Order Comment: Name Collection Type:: Clean-Voided Midstream Performed By: #### A DDONUAPLUS, UHCG #### [address] Leukocyte esterase Test strip Ql (U) Negative Normal Negative [facility] Comment on above: Order Comment: Name Collection Type:: Clean-Voided Midstream Performed By: #### A DDONUAPLUS, UHCG #### [address] Nitrite,Urine Negative Normal Negative [facility] Comment on above: Order Comment: Name Collection Type:: Clean-Voided Midstream Performed By: #### A DDONUAPLUS, UHCG #### [address] Occult Blood,Urine 3+ High Negative [facility] Comment on above: Order Comment: Name Collection Type:: Clean-Voided Midstream Performed By: #### A DDONUAPLUS, UHCG #### [address] pH (U) 6.5 [pH] Normal 5.0-9.0 [facility] Comment on above: Order Comment: Name Collection Type:: Clean-Voided Midstream Performed By: #### A DDONUAPLUS, UHCG #### [place] [address] [place] Protein,Urine Negative Normal Negative [facility] Comment on above: Order Comment: Name Collection Type:: Clean-Voided Midstream Performed By: #### A DDONUAPLUS, UHCG #### [place] [address] [place] RBC,Urine 3-4 Normal 0-4 [facility] Comment on above: Order Comment: Name Collection Type:: Clean-Voided Midstream Performed By: #### A DDONUAPLUS, UHCG #### [place] [address] [place] Specificy [place],Urine 1.013 Normal 1.001-1.030 [facility] Comment on above: Order Comment: Name Collection Type:: Clean-Voided Midstream Performed By: #### A DDONUAPLUS, UHCG #### [address] Squamous Epithelial Cell,Urine 3-4 High 0-2 [facility] Comment on above: Order Comment: Name Collection Type:: Clean-Voided Midstream Performed By: #### A DDONUAPLUS, CG #### [address] Urobilinogen,Urine Normal Normal Normal [facility] Comment on above: Order Comment: Name Collection Type:: Clean-Voided Midstream Performed By: #### A DDONUAPLUS, CG #### [address] WBC LM.HPF (Urine sed) [#/Area] 0 /[HPF] Normal 0-4 [facility] Comment on above: Order Comment: Name Collection Type:: Clean-Voided Midstream Performed By: #### A DDONUAPLUS, CG #### [address] HCG,Quantitativeon HCG,Quantitative [address].00 m[iU]/mL Normal [facility] Comment on above: Result Comment: Appr oximate Approximate hCG Gestational Age Range (mIU/ml) (weeks) 0.2-1 5-50 1-2 50-500 2-3 100-5,000 3-4 500-10,000 4-5 1,000-50,000 5-6 10,000-100,000 6-8 15,000-200,000 8-12 10,000-100,000 PERFORMED BY: [place] [address] PATHOLOGIST CHANGE CONSULTANT STEWART RAMOS M.D. Performed By: #### B MP, CBC, HCGQNT #### [address] HCG,Urineon 09-11-2021 Beta HCG ( test) Ql (U) Positive [facility] Comment on above: Order Comment: Name Collection Type:: Clean-Voided Midstream Result Comment: PERF ORMED BY: [place] [address] PATHOLOGIST CHANGE CONSULTANT STEWART RAMOS M.D. Performed By: #### A DDEDNA, [facility] #### [address] HEAD WO CONon 09-19-2020 CT HEAD WO CON EXAMINATION: CT HEAD WO CON HISTORY: Patient hit head on metal bar with left-sided pain. TECHNIQUE: Axial CT scans through the head were obtained without IV contrast administration. Dose reduction techniques were achieved by using: automated exposure control and/or adjustment of mA and /or kV according to patient size and/or use of iterative reconstruction technique. COMPARISON: None. FINDINGS: The cerebral hemispheres have normal white and mcclure matter and corticomedullary differentiation. To the limit of CT, the posterior fossa appears unremarkable. The ventricular system and cortical sulci are normal for the patient's age. No depressed skull fracture. No area of abnormal mass-effect or edema or intracranial hemorrhage. The visualized orbits show no gross mass. The visualized paranasal sinuses show no air-fluid level. Mastoid air cells are clear. IMPRESSION: No acute intracranial process. Electronically authenticated by: HÉCTOR CHAVEZ Date: 2020-09-19 18:41 Normal [facility] [id number] 09-30-2019 SARS-CoV-2 Not Detected Normal Not Detected [facility] Comment on above: Result Comment: (NOT E) This test was developed and its performance characteristics determined by [facility]. This test has not been FDA cleared or approved. This test has been authorized by FDA under an Emergency Use Authorization (EUA). This test is only authorized for the duration of time the declaration that circumstances exist justifying the authorization of the emergency use of in vitro diagnostic tests for detection of SARS-CoV-2 virus and/or diagnosis of COVID-19 infection under section 564(b)(1) of the Act, 21 U.S.C. 360bbb-3(b)(1), unless the authorization is terminated or revoked sooner. When diagnostic testing is negative, the possibility of a false negative result should be considered in the context of a patient's recent exposures and the presence of clinical signs and symptoms consistent with COVID-19. An individual without symptoms of COVID-19 and who is not shedding SARS-CoV-2 virus would expect to have a negative (not detected) result in this assay. Performed At: [facility] [address] [facility] [place] [id number] Tayla Daniels MD Ph:[phone] Performed By: #### A COV #### [facility] [address] [place] [address] Engineering Mathematician: Kian Altamirano MD Encounters Encounter Date Encounter Type Care Provider Facility Start: 09-02-2023 End: 09-02-2023 ambulatory JOJO [facility] Start: 07-08-2023 End: 07-08-2023 ambulatory [facility] Start: 07-07-2023 End: 07-08-2023 ambulatory RICHARD [facility] Start: 04-15-2023 End: 04-16-2023 ambulatory [facility] Start: 09-19-2020 End: 09-19-[address] NONE LISTED REQUEST Facility: Start: 09-25-2019 End: 09-26-2019 Patient encounter procedure MARIE DORENELUPE [facility] Start: 09-25-2019 End: 09-25-2019 Subsequent hospital visit by physician TAMIE CASTRO LAB DOCTOR Procedures Date Procedure Procedure Detail Performing Clinician Start: 07-08-2023 Follow-up visit Follow-up KARRIE HOGAN Start: 09-25-2019 COVID-19 AMBULATORY BOOM TISH AGUILAR Plan of Treatment Date Care Activity Detail Author Start: 11-21-2019 Influenza vaccination Flu vaccine (# 1) [place], [place] Start: 2013 Screening for malign ant neoplasm of cervix Cervical cancer screen [place] Start: 10-04-2011 DTaP/Tdap/Td vaccine (1 - Tdap) DTaP/Tdap/Td vaccine (1 - Tdap) [place] Start: 10-04-2007 [facility] [place] [place] Start: 10-04-2003 HPV vaccine (1 - 2-d ose series) HPV vaccine (1 - 2-dose series) [place] Start: 1993 Varicella vaccine (1 of 2 - 2-dose childhood series) Varicella vaccine (1 of 2 - 2-dose childhood series) [place] End: 09-25-2019 Covid-19 Ambulatory Covid-19 Ambulatory Lab Routine Once for 1 Occurrences starting 09/25/2019 until 09/25/2019 [place] Comment on above: Once for 1 Occurrenc es starting 09/25/2019 until 09/25/2019 Covid-19 Ambulatory Covid-19 Amb ulatory Lab Routine 09/25/2019 9:15 AM EDT [place] Payers Date Payer Category Payer Private Health Insurance [id number] 2019 Unknown [employer] [address] xxxxxxxxxxxx 2019-Present [phone] [address] [place] [address] xxxxxxxxxxxx [id number] 1992 Unknown [id number] 1992 Unknown [id number] 1992 Unknown [id number] 1992 Unknown [id number] 1992 Unknown [id number] 1992 Unknown [id number] 1959 Unknown [id number] Social History Date Type Detail Facility Start: 09-25-2019 Tobacco smoking status NHIS Never sm oker [facility], [facility] Sex Assigned At Not on file [place], [place] Summary Purpose Family History No Family History Records FoundNo Family History Records FoundNo Family History Records FoundNo Family History Records FoundNo Family History Records FoundNo Family History Records Found Advance Directives No Advanced Directives Records FoundDocuments on File Type Date 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 Advance Directives and Living Will Power of Value Analyst Additional Source Comments INFORMATION SOURCE (unrecogn ized section and content) DATE CREATED AUTHOR 10/13/2019 [facility] DATE CREATED AUTHOR AUTHOR'S ORGANIZ ATION 09/23/2020 [facility] DATE CREATED AUTHOR AUTHOR'S ORGANIZ ATION 01/15/2021 [facility] DATE CREATED AUTHOR AUTHOR'S ORGANIZ ATION 11/29/2021 [facility] DATE CREATED AUTHOR AUTHOR'S ORGANIZ ATION 07/08/2023 [facility] DATE CREATED AUTHOR AUTHOR'S ORGANIZ ATION 09/04/2023 [facility] FOR RECORDS PERTAINING TO PATIENTS WHO ARE OR HAVE BEEN ENROLLED IN A CHEMICAL DEPENDENCY/SUBSTANCEABUSE PROGRAM, SOME INFORMATION MAY BE OMITTED. This clinical summary was aggregated from multiple sources. Caution should be exercised in using it in the provision of clinical care. This summary normalizes information from multiple sources, and as a consequence, information in this document may materially change the coding, format and clinical context of patient data. In addition, data may be omitted in some cases. CLINICAL DECISIONS SHOULD BE BASED ON THE PRIMARY CLINICAL RECORDS. [employer] [facility]. provides no warranty or guarantee of the accuracy or completeness of information in this document.
[2024-01-13 07:31] LABS: Basophils Percent Auto 0.3 % (0.2-2.0); Eosinophils Absolute Auto 0.1 10^3/uL (0.0-0.7); Eosinophils Percent Auto 0.5 % (0.9-7.0); Hematocrit 43.5 % (36.0-48.0); Hemoglobin 15.5 g/dL (12.0-16.0); Immature Granulocytes Abs Auto 0.05 10^3/uL (0.00-0.03); Immature Granulocytes Pct Auto 0.5 % (0.0-0.5); Lymphocytes Percent Auto 27.1 % (20.5-60.0); Mean Corpuscular HGB Conc 35.6 g/dL (29.9-35.2); Mean Corpuscular Hemoglobin 33.2 pg (26.7-34.0); Mean Corpuscular Volume 93.1 fL (81.0-99.0); Mean Platelet Volume 10.8 fL (9.5-13.5); Monocytes Absolute Auto 0.8 10^3/uL (0.3-0.8); Monocytes Percent Auto 7.1 % (1.7-12.0); Neutrophils Absolute Auto 7.1 10^3/uL (1.4-6.5); Neutrophils Percent Auto 64.5 % (43.0-75.0); Platelet Count 226 10^3/uL (150-450); Red Blood Count 4.67 10^6/uL (4.20-5.40); Red Cell Distribution Width 11.9 % (11.0-15.0); White Blood Count 10.9 10^3/uL (4.0-11.0)
[2024-01-13 09:10] LABS: Alanine Aminotransferase 25 U/L (14-59); Albumin Globulin Ratio 0.9; Albumin Level 3.3 g/dL (3.4-5.0); Alkaline Phosphatase 60 U/L (46-116); Anion Gap 14.2; Aspartate Amino Transferase 15 U/L (15-37); BUN Creatinine Ratio 7.6; Bilirubin Total 0.5 mg/dL (0.2-1.0); Calcium 8.8 mg/dL (8.5-10.1); Carbon Dioxide 27.1 mmol/L (21.0-32.0); Chloride 105 mmol/L (98-107); Estimated GFR (African America >60 (>=60 mL/min/1.73m^2); Estimated GFR (Non-African Ame >60 (>=60 mL/min/1.73m^2); Globulin 3.8 g/dL; Glucose 82 mg/dL (74-106); Potassium 3.3 mmol/L (3.5-5.1); Sodium 143 mmol/L (136-145); Thyroid Stimulating Hormone 4.931 uIU/mL (0.358-3.740); Total Protein 7.1 g/dL (6.4-8.2)
[2024-01-13 10:48] LABS: Free T4 0.92 ng/dL (0.76-1.46)
== END 2024-01-13 07:12 | disposition home or self-care (01) ==
LOC: LAB 07:16
PROVIDERS: PCP Student in an Organized Health Care Education/Training Program
DX: E83.51 Hypocalcemia (principal); E27.1 Primary adrenocortical insufficiency
CPT/HCPCS: 36415; 80053; 82306; 84439; 84443; 85025